=== PATIENT | male | born 1960 | race Caucasian/White ===

== ENCOUNTER 2017-07-09 17:59 | Emergency (ER) | payer MEDICAID ==
[~2017-07-09] VITALS: Ht 172.7 cm; Wt 56.7 kg
[~2017-07-09 17:59] MED LIST: 'XANAX0.25 MG PO; ACETAMINOPHEN-H1 TA2 PO; ANAPROX DS550 MG PO; ASPIR-LOW81 MG PO; BACTRIM DS 8001 TA1 PO; CLEOCIN HCL150 MG PO; COREG6.25 MG PO; COUMADIN10 M1 PO; COUMADIN7.5 M1 PO; FIORICET 325 MG1 TAB PO; FLEXERIL10 MG PO; FLONASE0.05 MG/AC NS; HYDROCODONE BIT1 T11 PO; LEVAQUIN750 MG PO; LISINOPRIL2.5 MG PO; MEDROL DOSEPAK4 MG PO; MOTRIN800 MG PO; NIZORAL 2%15 GM PO; NYSTATIN CREAM15 GM T; PRAVACHOL40 MG PO; PRAVASTATIN PO; PREDNICOT20 MG PO; PREDNISONE10 MG PO; PYRIDIUM200 M1 PO; SEPTRA DS 800 M1 TAB PO; SOTALOL HCL120 MG PO; VIBRAMYCIN100 MG PO; ZESTRIL5 MG PO
[2017-07-09 19:12] LABS: BASO # 0.1 10*3/uL (0.0-0.1); EOS # 0.1 10*3/uL (0.0-0.4); EOS % 1.3 % (1.0-4.0); HEMATOCRIT 39.7 % (42.0-52.0); HEMOGLOBIN 13.6 g/dl (14.0-18.0); LYMPH # 0.8 10*3/uL (1.3-4.4); LYMPH % 17.4 % (27.0-41.0); MEAN CELL VOLUME 92.3 fl (80.0-94.0); MEAN CORPUSCULAR HGB 31.6 pg (27.0-31.0); MEAN CORPUSCULAR HGB CONC 34.3 g/dl (33.0-37.0); MEAN PLATELET VOLUME 9.9 fl (9.6-12.3); MONO # 0.3 10*3/uL (0.1-1.0); MONO % 6.7 % (3.0-9.0); NEUT # 3.5 10*3/uL (2.3-7.9); NEUT % 73.2 % (47.0-73.0); PLATELET COUNT AUTOMATED 188 10*3/uL (130-400); WHITE BLOOD COUNT 4.8 10*3/uL (4.8-10.8)
[2017-07-09 19:19] LABS: INTERNATIONAL NORM RATIO 1.9 (2.0-3.5)
[2017-07-09 19:35] LABS: ALBUMIN 3.3 gm/dl (3.1-4.5); ALKALINE PHOSPHATASE 60 U/L (45-117); BUN 15 mg/dl (7-24); CHLORIDE 109 mmol/L (98-107); CREATININE 0.72 mg/dL (0.70-1.30); POTASSIUM 3.9 mmol/L (3.5-5.1); SGOT/AST 29 IU/L (3-35); SGPT/ALT 32 U/L (12-78); SODIUM 141 mmol/L (136-145)
[2017-07-09 19:36] LABS: TROPONIN I < 0.015 ng/ml (<0.045)
[2017-07-09] MEDS ORDERED: ZITHROMAX250 MG PO (21:50)
== END 2017-07-09 22:20 | disposition home or self-care (01) ==
LOC: ED 17:59
PROVIDERS: Physician Assistant
DX: H92.01 Otalgia, right ear (principal); R51 Headache; F17.200 Nicotine dependence, unspecified, uncomplicated; Z88.0 Allergy status to penicillin; Z91.040 Latex allergy status; Z79.82 Long term (current) use of aspirin; Z79.01 Long term (current) use of anticoagulants

== ENCOUNTER 2019-02-21 13:22 | Emergency (ER) | payer OTHER ==
[~2019-02-21] VITALS: Wt 54.4 kg
[~2019-02-21 13:22] MED LIST changes: +ZITHROMAX250 MG PO
[2019-02-21] MEDS ORDERED: LIDEX 0.05% CRE15 GM T (13:52)
== END 2019-02-21 14:00 | disposition home or self-care (01) ==
LOC: ED 13:22
DX: S40.262A Insect bite (nonvenomous) of left shoulder, initial encounter (principal); S30.860A Insect bite (nonvenomous) of lower back and pelvis, initial encounter; S70.362A Insect bite (nonvenomous), left thigh, initial encounter; S70.361A Insect bite (nonvenomous), right thigh, initial encounter; S30.861A Insect bite (nonvenomous) of abdominal wall, initial encounter; Z79.899 Other long term (current) drug therapy; Z79.01 Long term (current) use of anticoagulants; Z79.82 Long term (current) use of aspirin; Z88.0 Allergy status to penicillin; Z91.040 Latex allergy status; W57.XXXA Bitten or stung by nonvenomous insect and other nonvenomous arthropods, initial encounter; Y93.89 Activity, other specified; Y92.89 Other specified places as the place of occurrence of the external cause; Y99.8 Other external cause status

== ENCOUNTER 2019-07-11 19:57 | Emergency (ER) | payer OTHER ==
[~2019-07-11] VITALS: Ht 172.7 cm; Wt 49.9 kg
[~2019-07-11 19:57] MED LIST changes: +LIDEX 0.05% CRE15 GM T
[2019-07-11] MEDS ORDERED: KENALOG 0.025%15 GM T (20:27)
== END 2019-07-11 21:12 | disposition home or self-care (01) ==
LOC: ED 19:57
DX: S40.862A Insect bite (nonvenomous) of left upper arm, initial encounter (principal); S30.861A Insect bite (nonvenomous) of abdominal wall, initial encounter; Z88.0 Allergy status to penicillin; Z91.040 Latex allergy status; Z79.899 Other long term (current) drug therapy; Z79.82 Long term (current) use of aspirin; W57.XXXA Bitten or stung by nonvenomous insect and other nonvenomous arthropods, initial encounter; Y93.89 Activity, other specified; Y92.89 Other specified places as the place of occurrence of the external cause; Y99.8 Other external cause status

== ENCOUNTER 2019-08-19 18:34 | Emergency (ER) | payer OTHER ==
[~2019-08-19] VITALS: Ht 172.7 cm; Wt 49.9 kg
[~2019-08-19 18:34] MED LIST changes: +KENALOG 0.025%15 GM T
[2019-08-19] MEDS ORDERED: OFLOXACIN 5 ML5 ML OP (19:03)
== END 2019-08-19 19:04 | disposition home or self-care (01) ==
LOC: ED 18:34
DX: H60.93 Unspecified otitis externa, bilateral (principal); I25.2 Old myocardial infarction; J44.9 Chronic obstructive pulmonary disease, unspecified; I25.10 Atherosclerotic heart disease of native coronary artery without angina pectoris; E78.00 Pure hypercholesterolemia, unspecified; I48.91 Unspecified atrial fibrillation; F17.200 Nicotine dependence, unspecified, uncomplicated; Z88.0 Allergy status to penicillin; Z91.040 Latex allergy status; Z79.899 Other long term (current) drug therapy; Z79.2 Long term (current) use of antibiotics; Z79.82 Long term (current) use of aspirin

== ENCOUNTER → 2019-11-14 | Outpatient (CLI) | payer OTHER ==
[~2019-11-14] MED LIST changes: +OFLOXACIN 5 ML5 ML OP
== END | disposition home or self-care (01) ==
LOC: RAD 15:11
DX: M79.641 Pain in right hand (principal)

== ENCOUNTER 2021-03-20 05:19 | Emergency (ER) | payer OTHER ==
[~2021-03-20] VITALS: Wt 52.2 kg
[2021-03-20] MEDS ORDERED: XARE15TA PO (05:33)
[2021-03-20 06:51] LABS: BASO # 0.1 10*3/uL (0.0-0.1); BASO % 0.4 % (0.0-1.0); EOS # 0.1 10*3/uL (0.0-0.4); EOS % 0.8 % (1.0-4.0); HEMATOCRIT 40.9 % (42.0-52.0); LYMPH # 1.3 10*3/uL (1.3-4.4); LYMPH % 9.7 % (27.0-41.0); MEAN CELL VOLUME 92.3 fl (80.0-94.0); MEAN CORPUSCULAR HGB 31.4 pg (27.0-31.0); MEAN PLATELET VOLUME 9.9 fl (9.6-12.3); MONO # 0.6 10*3/uL (0.1-1.0); MONO % 4.8 % (3.0-9.0); NEUT # 11.1 10*3/uL (2.3-7.9); NEUT % 83.9 % (47.0-73.0); PLATELET COUNT AUTOMATED 225 10*3/uL (130-400); RED BLOOD COUNT 4.43 10*6/uL (4.50-5.90); RED CELL DISTRI WIDTH 12.4 % (0-14.5); WHITE BLOOD COUNT 13.3 10*3/uL (4.8-10.8)
[2021-03-20 07:08] LABS: ALBUMIN 3.5 gm/dl (3.1-4.5); ALKALINE PHOSPHATASE 69 U/L (45-117); BUN 14 mg/dl (7-24); CHLORIDE 111 mmol/L (98-107); CREATININE 0.79 mg/dL (0.70-1.30); LIPASE 93 U/L (73-393); POTASSIUM 3.5 mmol/L (3.5-5.1); SGOT/AST 18 IU/L (3-35); SGPT/ALT 20 U/L (12-78); SODIUM 141 mmol/L (136-145); TOTAL PROTEIN 7.3 gm/dL (6.4-8.2)
[2021-03-20 12:41] LABS: BILIRUBIN Negative (Negative); BLOOD 3+ (Negative); CLARITY Clear (Clear); COLOR Yellow (Yellow); GLUCOSE Negative (Negative); KETONE Negative (Negative); LEUKO ESTERASE Negative (Negative); NITRITE Negative (Negative); PH 6.5 (4.5-8.0); SPECIFIC GRAVITY >= 1.030 (1.001-1.030)
[2021-03-20 12:59] LABS: RBC TNTC rbc/hpf (0-2); WBC 0-2 wbc/hpf (0-5)
== END 2021-03-20 16:10 | disposition short-term general hospital (02) ==
LOC: ED 05:19
PROVIDERS: Emergency Medicine; Student in an Organized Health Care Education/Training Program
DX: N13.2 Hydronephrosis with renal and ureteral calculous obstruction (principal); R11.2 Nausea with vomiting, unspecified; I48.91 Unspecified atrial fibrillation; F41.9 Anxiety disorder, unspecified; I25.10 Atherosclerotic heart disease of native coronary artery without angina pectoris; E78.5 Hyperlipidemia, unspecified; F17.200 Nicotine dependence, unspecified, uncomplicated; Z88.0 Allergy status to penicillin; Z91.040 Latex allergy status; Z79.899 Other long term (current) drug therapy; Z79.01 Long term (current) use of anticoagulants; Z79.82 Long term (current) use of aspirin; Z90.89 Acquired absence of other organs; Z95.810 Presence of automatic (implantable) cardiac defibrillator

== ENCOUNTER → 2021-09-25 | Outpatient (CLI) | payer OTHER ==
[~2021-09-25] MED LIST changes: +XARE15TA PO
[2021-09-25 15:34] LABS: BASO # 0.1 10*3/uL (0.0-0.1); BASO % 0.9 % (0.0-1.0); EOS # 0.4 10*3/uL (0.0-0.4); EOS % 3.8 % (1.0-4.0); HEMATOCRIT 47.3 % (42.0-52.0); LYMPH % 21.9 % (27.0-41.0); MEAN CELL VOLUME 94.4 fl (80.0-94.0); MEAN CORPUSCULAR HGB 30.9 pg (27.0-31.0); MEAN CORPUSCULAR HGB CONC 32.8 g/dl (33.0-37.0); MEAN PLATELET VOLUME 9.8 fl (9.6-12.3); MONO # 0.6 10*3/uL (0.1-1.0); MONO % 6.9 % (3.0-9.0); NEUT # 6.2 10*3/uL (2.3-7.9); NEUT % 66.4 % (47.0-73.0); PLATELET COUNT AUTOMATED 291 10*3/uL (130-400); RED BLOOD COUNT 5.01 10*6/uL (4.50-5.90); RED CELL DISTRI WIDTH 12.7 % (0-14.5); WHITE BLOOD COUNT 9.3 10*3/uL (4.8-10.8)
[2021-09-25 15:49] LABS: ALBUMIN 3.5 gm/dl (3.1-4.5); ALKALINE PHOSPHATASE 81 U/L (45-117); BUN 19 mg/dl (7-24); CHLORIDE 110 mmol/L (98-107); LDH 195 U/L (87-241); POTASSIUM 4.5 mmol/L (3.5-5.1); SGOT/AST 18 IU/L (3-35); SGPT/ALT 29 U/L (12-78); SODIUM 141 mmol/L (136-145); TOTAL PROTEIN 8.1 gm/dL (6.4-8.2)
== END | disposition home or self-care (01) ==
LOC: LAB 15:08
PROVIDERS: ATTEND Internal Medicine Hematology & Oncology
DX: C64.1 Malignant neoplasm of right kidney, except renal pelvis (principal)

== ENCOUNTER → 2023-04-15 | Outpatient (CLI) | payer MEDICARE | END | disposition home or self-care (01) | LOC: LAB 15:55 | PROVIDERS: ATTEND Urology | DX: Z12.5 Encounter for screening for malignant neoplasm of prostate (principal) ==

== ENCOUNTER 2023-09-29 19:40 | Emergency (ER) | payer MEDICARE ==
[~2023-09-29] VITALS: Ht 167.6 cm; Wt 49.0 kg
[2023-09-29] MEDS ORDERED: LIPITOR40 MG PO (20:16)
[2023-09-29] MEDS ORDERED: PROTONIX TR40 M1 PO (20:17)
[2023-09-29] MEDS ORDERED: AMITRIPTYLINE25 MG PO (20:17)
== END 2023-09-29 21:29 | disposition home or self-care (01) ==
LOC: ED 19:40
DX: Z48.01 Encounter for change or removal of surgical wound dressing (principal); Z96.89 Presence of other specified functional implants; I25.2 Old myocardial infarction; J44.9 Chronic obstructive pulmonary disease, unspecified; I25.10 Atherosclerotic heart disease of native coronary artery without angina pectoris; E78.00 Pure hypercholesterolemia, unspecified; I48.91 Unspecified atrial fibrillation; Z88.0 Allergy status to penicillin; Z91.040 Latex allergy status; Z90.89 Acquired absence of other organs; Z98.890 Other specified postprocedural states

== ENCOUNTER → 2023-11-06 | Outpatient (CLI) | payer MEDICARE ==
[~2023-11-06] MED LIST changes: +AMITRIPTYLINE25 MG PO; +LIPITOR40 MG PO; +PROTONIX TR40 M1 PO
[2023-11-06 14:22] LABS: BASO # 0.1 10*3/uL (0.0-0.1); BASO % 0.5 % (0.0-1.0); EOS # 0.2 10*3/uL (0.0-0.4); EOS % 1.9 % (1.0-4.0); HEMATOCRIT 49.4 % (42.0-52.0); MEAN CELL VOLUME 95.9 fl (80.0-94.0); MEAN CORPUSCULAR HGB 31.3 pg (27.0-31.0); MEAN CORPUSCULAR HGB CONC 32.6 g/dl (33.0-37.0); MEAN PLATELET VOLUME 9.3 fl (9.6-12.3); MONO % 7.9 % (3.0-9.0); NEUT # 9.2 10*3/uL (2.3-7.9); NEUT % 73.3 % (47.0-73.0); PLATELET COUNT AUTOMATED 244 10*3/uL (130-400); RED BLOOD COUNT 5.15 10*6/uL (4.50-5.90); RED CELL DISTRI WIDTH 12.5 % (0-14.5); WHITE BLOOD COUNT 12.6 10*3/uL (4.8-10.8)
[2023-11-06 14:48] LABS: ALKALINE PHOSPHATASE 82 U/L (46-116); BUN 12 mg/dl (9-23); CHLORIDE 106 mmol/L (98-107); FREE T4 1.29 ng/dl (0.89-1.76); POTASSIUM 4.3 mmol/L (3.4-5.1); SGPT/ALT 13 U/L (5-49); TOTAL PROTEIN 8.4 gm/dL (6.0-8.0)
== END | disposition home or self-care (01) ==
LOC: LAB 14:06
PROVIDERS: ATTEND Internal Medicine Hematology & Oncology
DX: Z51.11 Encounter for antineoplastic chemotherapy (principal); Z51.12 Encounter for antineoplastic immunotherapy; I11.0 Hypertensive heart disease with heart failure; I50.22 Chronic systolic (congestive) heart failure; C65.1 Malignant neoplasm of right renal pelvis

== ENCOUNTER → 2023-11-27 | Outpatient (CLI) | payer MEDICARE ==
[2023-11-27 16:06] LABS: BASO # 0.1 10*3/uL (0.0-0.1); BASO % 0.5 % (0.0-1.0); EOS # 0.1 10*3/uL (0.0-0.4); EOS % 0.8 % (1.0-4.0); HEMATOCRIT 43.7 % (42.0-52.0); LYMPH # 1.8 10*3/uL (1.3-4.4); LYMPH % 11.7 % (27.0-41.0); MEAN CORPUSCULAR HGB 30.3 pg (27.0-31.0); MEAN CORPUSCULAR HGB CONC 31.6 g/dl (33.0-37.0); MEAN PLATELET VOLUME 9.6 fl (9.6-12.3); MONO # 1.4 10*3/uL (0.1-1.0); MONO % 9.2 % (3.0-9.0); NEUT # 11.9 10*3/uL (2.3-7.9); NEUT % 77.3 % (47.0-73.0); PLATELET COUNT AUTOMATED 358 10*3/uL (130-400); RED BLOOD COUNT 4.55 10*6/uL (4.50-5.90); RED CELL DISTRI WIDTH 12.4 % (0-14.5); WHITE BLOOD COUNT 15.4 10*3/uL (4.8-10.8)
[2023-11-27 16:31] LABS: ALKALINE PHOSPHATASE 79 U/L (46-116); BUN 14 mg/dl (9-23); CHLORIDE 103 mmol/L (98-107); FREE T4 1.25 ng/dl (0.89-1.76); SGPT/ALT 57 U/L (5-49); TOTAL PROTEIN 8.7 gm/dL (6.0-8.0)
== END | disposition home or self-care (01) ==
LOC: LAB 15:40
PROVIDERS: ATTEND Internal Medicine Hematology & Oncology
DX: Z51.11 Encounter for antineoplastic chemotherapy (principal); Z51.12 Encounter for antineoplastic immunotherapy; I11.0 Hypertensive heart disease with heart failure; I50.22 Chronic systolic (congestive) heart failure; C65.1 Malignant neoplasm of right renal pelvis

== ENCOUNTER → 2023-12-04 | Outpatient (CLI) | payer MEDICARE ==
[2023-12-04 14:59] LABS: HEMATOCRIT 38.3 % (42.0-52.0); MEAN CELL VOLUME 94.6 fl (80.0-94.0); MEAN CORPUSCULAR HGB 29.6 pg (27.0-31.0); MEAN CORPUSCULAR HGB CONC 31.3 g/dl (33.0-37.0); MEAN PLATELET VOLUME 9.3 fl (9.6-12.3); PLATELET COUNT AUTOMATED 497 10*3/uL (130-400); RED BLOOD COUNT 4.05 10*6/uL (4.50-5.90); RED CELL DISTRI WIDTH 12.5 % (0-14.5)
[2023-12-04 15:01] LABS: MANUAL DIFF REFLEX YES
[2023-12-04 15:24] LABS: ALKALINE PHOSPHATASE 130 U/L (46-116); BUN 16 mg/dl (9-23); CHLORIDE 100 mmol/L (98-107); POTASSIUM 4.4 mmol/L (3.4-5.1); SGPT/ALT 79 U/L (5-49); TOTAL PROTEIN 8.6 gm/dL (6.0-8.0)
[2023-12-04 15:25] LABS: PLATELET SUFFICIENCY HIGH (NORMAL); TOTAL CELLS COUNTED 100 #CELLS
[2023-12-04 15:26] LABS: ROULEAUX SLIGHT; SPHEROCYTES FEW
== END ==
LOC: LAB 14:43
PROVIDERS: ATTEND Internal Medicine Hematology & Oncology
DX: Z51.11 Encounter for antineoplastic chemotherapy (principal); Z51.12 Encounter for antineoplastic immunotherapy; C65.1 Malignant neoplasm of right renal pelvis; I11.0 Hypertensive heart disease with heart failure; I50.22 Chronic systolic (congestive) heart failure

== ENCOUNTER → 2023-12-11 | Outpatient (CLI) | payer MEDICARE ==
[2023-12-11 15:50] LABS: HEMATOCRIT 36.9 % (42.0-52.0); MEAN CELL VOLUME 94.4 fl (80.0-94.0); MEAN CORPUSCULAR HGB 29.9 pg (27.0-31.0); MEAN CORPUSCULAR HGB CONC 31.7 g/dl (33.0-37.0); MEAN PLATELET VOLUME 8.8 fl (9.6-12.3); PLATELET COUNT AUTOMATED 516 10*3/uL (130-400); RED BLOOD COUNT 3.91 10*6/uL (4.50-5.90); RED CELL DISTRI WIDTH 13.1 % (0-14.5); WHITE BLOOD COUNT 24.7 10*3/uL (4.8-10.8)
[2023-12-11 15:55] LABS: MANUAL DIFF REFLEX YES
[2023-12-11 16:15] LABS: ALKALINE PHOSPHATASE 105 U/L (46-116); BUN 21 mg/dl (9-23); CHLORIDE 96 mmol/L (98-107); PLATELET SUFFICIENCY HIGH (NORMAL); POTASSIUM 4.7 mmol/L (3.4-5.1); SGPT/ALT 77 U/L (5-49); TOTAL CELLS COUNTED 100 #CELLS; TOTAL PROTEIN 8.7 gm/dL (6.0-8.0)
== END | disposition home or self-care (01) ==
LOC: LAB 15:26
PROVIDERS: ATTEND Internal Medicine Hematology & Oncology
DX: Z51.11 Encounter for antineoplastic chemotherapy (principal); Z51.12 Encounter for antineoplastic immunotherapy; I11.0 Hypertensive heart disease with heart failure; I50.22 Chronic systolic (congestive) heart failure; C65.1 Malignant neoplasm of right renal pelvis

== ENCOUNTER → 2023-12-18 | Outpatient (CLI) | payer MEDICARE ==
[2023-12-18 16:21] LABS: BASO # 0.1 10*3/uL (0.0-0.1); BASO % 0.8 % (0.0-1.0); EOS # 0.2 10*3/uL (0.0-0.4); EOS % 1.4 % (1.0-4.0); HEMATOCRIT 35.7 % (42.0-52.0); LYMPH # 1.8 10*3/uL (1.3-4.4); LYMPH % 15.2 % (27.0-41.0); MEAN CELL VOLUME 94.4 fl (80.0-94.0); MEAN CORPUSCULAR HGB 29.4 pg (27.0-31.0); MEAN CORPUSCULAR HGB CONC 31.1 g/dl (33.0-37.0); MONO # 0.8 10*3/uL (0.1-1.0); MONO % 6.5 % (3.0-9.0); NEUT # 8.9 10*3/uL (2.3-7.9); NEUT % 75.4 % (47.0-73.0); PLATELET COUNT AUTOMATED 551 10*3/uL (130-400); RED BLOOD COUNT 3.78 10*6/uL (4.50-5.90); RED CELL DISTRI WIDTH 13.2 % (0-14.5); WHITE BLOOD COUNT 11.7 10*3/uL (4.8-10.8)
[2023-12-18 16:46] LABS: ALKALINE PHOSPHATASE 87 U/L (46-116); BUN 23 mg/dl (9-23); CHLORIDE 100 mmol/L (98-107); FREE T4 1.03 ng/dl (0.89-1.76); POTASSIUM 4.2 mmol/L (3.4-5.1); SGPT/ALT 28 U/L (5-49)
== END | disposition home or self-care (01) ==
LOC: LAB 16:01
PROVIDERS: ATTEND Internal Medicine Hematology & Oncology
DX: Z51.11 Encounter for antineoplastic chemotherapy (principal); Z51.12 Encounter for antineoplastic immunotherapy; C65.1 Malignant neoplasm of right renal pelvis; I11.0 Hypertensive heart disease with heart failure; I50.22 Chronic systolic (congestive) heart failure

== ENCOUNTER → 2023-12-25 | Outpatient (CLI) | payer MEDICARE ==
[2023-12-25 14:37] LABS: BASO # 0.1 10*3/uL (0.0-0.1); EOS # 0.2 10*3/uL (0.0-0.4); EOS % 2.4 % (1.0-4.0); HEMATOCRIT 39.7 % (42.0-52.0); LYMPH % 23.8 % (27.0-41.0); MEAN CELL VOLUME 94.3 fl (80.0-94.0); MEAN CORPUSCULAR HGB 29.5 pg (27.0-31.0); MEAN CORPUSCULAR HGB CONC 31.2 g/dl (33.0-37.0); MEAN PLATELET VOLUME 8.5 fl (9.6-12.3); MONO # 0.6 10*3/uL (0.1-1.0); MONO % 7.2 % (3.0-9.0); NEUT # 5.3 10*3/uL (2.3-7.9); PLATELET COUNT AUTOMATED 458 10*3/uL (130-400); RED BLOOD COUNT 4.21 10*6/uL (4.50-5.90); RED CELL DISTRI WIDTH 14.2 % (0-14.5); WHITE BLOOD COUNT 8.2 10*3/uL (4.8-10.8)
[2023-12-25 14:57] LABS: ALKALINE PHOSPHATASE 87 U/L (46-116); BUN 17 mg/dl (9-23); CHLORIDE 105 mmol/L (98-107); FREE T4 1.01 ng/dl (0.89-1.76); POTASSIUM 4.5 mmol/L (3.4-5.1); SGPT/ALT 16 U/L (5-49); TOTAL PROTEIN 8.4 gm/dL (6.0-8.0)
== END | disposition home or self-care (01) ==
LOC: LAB 14:14
PROVIDERS: ATTEND Internal Medicine Hematology & Oncology
DX: Z51.11 Encounter for antineoplastic chemotherapy (principal); Z51.12 Encounter for antineoplastic immunotherapy; C65.1 Malignant neoplasm of right renal pelvis; I11.0 Hypertensive heart disease with heart failure; I50.22 Chronic systolic (congestive) heart failure

== ENCOUNTER → 2024-01-15 | Outpatient (CLI) | payer MEDICARE ==
[2024-01-15 14:28] LABS: BASO # 0.1 10*3/uL (0.0-0.1); BASO % 0.6 % (0.0-1.0); EOS # 0.2 10*3/uL (0.0-0.4); EOS % 1.3 % (1.0-4.0); HEMATOCRIT 38.2 % (42.0-52.0); LYMPH # 1.9 10*3/uL (1.3-4.4); LYMPH % 14.2 % (27.0-41.0); MEAN CELL VOLUME 92.9 fl (80.0-94.0); MEAN CORPUSCULAR HGB 29.2 pg (27.0-31.0); MEAN CORPUSCULAR HGB CONC 31.4 g/dl (33.0-37.0); MEAN PLATELET VOLUME 8.9 fl (9.6-12.3); MONO # 0.8 10*3/uL (0.1-1.0); MONO % 6.4 % (3.0-9.0); NEUT # 10.1 10*3/uL (2.3-7.9); NEUT % 77.1 % (47.0-73.0); PLATELET COUNT AUTOMATED 401 10*3/uL (130-400); RED BLOOD COUNT 4.11 10*6/uL (4.50-5.90); RED CELL DISTRI WIDTH 14.3 % (0-14.5)
[2024-01-15 16:44] LABS: ALKALINE PHOSPHATASE 77 U/L (46-116); BUN 21 mg/dl (9-23); CHLORIDE 102 mmol/L (98-107); FREE T4 0.99 ng/dl (0.89-1.76); POTASSIUM 4.4 mmol/L (3.4-5.1); SGPT/ALT 16 U/L (5-49); TOTAL PROTEIN 8.7 gm/dL (6.0-8.0)
== END | disposition home or self-care (01) ==
LOC: LAB 14:07
PROVIDERS: ATTEND Internal Medicine Hematology & Oncology
DX: Z51.11 Encounter for antineoplastic chemotherapy (principal); Z51.12 Encounter for antineoplastic immunotherapy; C65.1 Malignant neoplasm of right renal pelvis; I11.0 Hypertensive heart disease with heart failure; I50.22 Chronic systolic (congestive) heart failure

== ENCOUNTER 2024-01-31 13:59 | Emergency (ER) | payer MEDICARE ==
[2024-01-31] MEDS ORDERED: SODIUM CHLORIDE 0.9% 1,000 ML IV SCH (14:20)
[2024-01-31 14:33] LABS: MEAN CELL VOLUME 90.6 fl (80.0-94.0); MEAN CORPUSCULAR HGB 28.7 pg (27.0-31.0); MEAN CORPUSCULAR HGB CONC 31.7 g/dl (33.0-37.0); MEAN PLATELET VOLUME 9.1 fl (9.6-12.3); PLATELET COUNT AUTOMATED 390 10*3/uL (130-400); RED BLOOD COUNT 3.31 10*6/uL (4.50-5.90); RED CELL DISTRI WIDTH 14.6 % (0-14.5); WHITE BLOOD COUNT 24.8 10*3/uL (4.8-10.8)
[2024-01-31 14:35] LABS: MANUAL DIFF REFLEX YES
[2024-01-31 14:51] LABS: ACT PARTIAL THROMBO TIME 34.7 SECONDS (20.0-32.1)
[2024-01-31 14:54] LABS: ALKALINE PHOSPHATASE 193 U/L (46-116); BUN 24 mg/dl (9-23); CHLORIDE 101 mmol/L (98-107); LIPASE 39 U/L (12-53); POTASSIUM 4.2 mmol/L (3.4-5.1); SGPT/ALT 135 U/L (5-49); TOTAL PROTEIN 7.6 gm/dL (6.0-8.0)
[2024-01-31 15:00] LABS: BURR CELLS FEW; PLATELET SUFFICIENCY NORMAL (NORMAL); TOTAL CELLS COUNTED 100 #CELLS
[2024-01-31] MEDS ORDERED: Vancomycin Hydrochloride 250 ML IV ONE (15:00)
[2024-01-31] MEDS ORDERED: Cefepime Hydrochloride 2 GM in SODIUM CHLORIDE 0.9% 50 ML IV ONE (15:00)
[2024-01-31] MEDS ORDERED: AZITHROMYCIN 250 ML IV ONE (15:00)
[2024-01-31 15:01] LABS: TARGET CELLS FEW; TOXIC GRANULATION SLIGHT
[2024-01-31] MEDS ORDERED: NOREPINEPHRINE BITARTRATE/D5W 250 ML IV SCH (15:40)
[2024-01-31] MEDS ORDERED: IOHEXOL 300 MG/ML 100 ML VIAL IV ONE (17:20)
== END 2024-01-31 21:15 | disposition short-term general hospital (02) ==
LOC: ED 13:59
PROVIDERS: Internal Medicine
DX: R91.8 Other nonspecific abnormal finding of lung field (principal); J18.9 Pneumonia, unspecified organism; R65.21 Severe sepsis with septic shock; Z88.0 Allergy status to penicillin; Z91.040 Latex allergy status; Z90.89 Acquired absence of other organs; Z98.890 Other specified postprocedural states; I25.2 Old myocardial infarction; J44.9 Chronic obstructive pulmonary disease, unspecified; I25.10 Atherosclerotic heart disease of native coronary artery without angina pectoris; E78.00 Pure hypercholesterolemia, unspecified; I48.91 Unspecified atrial fibrillation

== ENCOUNTER → 2024-10-27 | Outpatient (CLI) | payer MEDICARE ==
[2024-10-27 16:17] LABS: BASO # 0.1 10*3/uL (0.0-0.1); BASO % 0.8 % (0.0-1.0); EOS # 0.3 10*3/uL (0.0-0.4); EOS % 3.3 % (1.0-4.0); HEMATOCRIT 42.8 % (42.0-52.0); MEAN CELL VOLUME 92.8 fl (80.0-94.0); MEAN CORPUSCULAR HGB 30.8 pg (27.0-31.0); MEAN CORPUSCULAR HGB CONC 33.2 g/dl (33.0-37.0); MEAN PLATELET VOLUME 9.3 fl (9.6-12.3); MONO # 0.8 10*3/uL (0.1-1.0); MONO % 7.7 % (3.0-9.0); NEUT # 6.7 10*3/uL (2.3-7.9); NEUT % 66.6 % (47.0-73.0); PLATELET COUNT AUTOMATED 253 10*3/uL (130-400); RED BLOOD COUNT 4.61 10*6/uL (4.50-5.90); RED CELL DISTRI WIDTH 12.6 % (0-14.5)
[2024-10-27 16:46] LABS: ALKALINE PHOSPHATASE 92 U/L (46-116); BUN 10 mg/dl (9-23); CHLORIDE 104 mmol/L (98-107); FREE T4 1.12 ng/dl (0.89-1.76); POTASSIUM 4.3 mmol/L (3.4-5.1); SGPT/ALT 11 U/L (5-49); TOTAL PROTEIN 7.8 gm/dL (6.0-8.0)
== END | disposition home or self-care (01) ==
LOC: LAB 15:52
PROVIDERS: ATTEND Internal Medicine Hematology & Oncology
DX: C65.1 Malignant neoplasm of right renal pelvis (principal); I11.0 Hypertensive heart disease with heart failure; I50.22 Chronic systolic (congestive) heart failure; Z51.12 Encounter for antineoplastic immunotherapy; Z51.11 Encounter for antineoplastic chemotherapy

== ENCOUNTER 2025-04-06 16:08 | Emergency (ER) | payer MEDICARE ==
[~2025-04-06] VITALS: Ht 172.7 cm; Wt 48.5 kg
[2025-04-06] MEDS ORDERED: SODIUM CHLORIDE 0.9% 500 ML IV ONE (16:50)
[2025-04-06] MEDS ORDERED: Ondansetron Hydrochloride 4 MG/2 ML VIAL IV ONE (16:50)
[2025-04-06 17:06] LABS: BASO # 0.1 10*3/uL (0.0-0.1); BASO % 0.4 % (0.0-1.0); EOS # 0.3 10*3/uL (0.0-0.4); EOS % 2.4 % (1.0-4.0); MEAN CELL VOLUME 85.1 fl (80.0-94.0); MEAN CORPUSCULAR HGB 26.3 pg (27.0-31.0); MEAN PLATELET VOLUME 9.2 fl (9.6-12.3); MONO # 1.1 10*3/uL (0.1-1.0); MONO % 8.3 % (3.0-9.0); NEUT # 9.9 10*3/uL (2.3-7.9); NEUT % 77.4 % (47.0-73.0); NUCLEATED RED BLOOD CELL 0.0 % (0.0-0.0); NUCLEATED RED BLOOD CELL 0.0 10*3/uL (0.0-0.0); PLATELET COUNT AUTOMATED 293 10*3/uL (130-400); RED CELL DISTRI WIDTH 12.8 % (0-14.5)
[2025-04-06 17:23] LABS: BUN 21 mg/dl (9-23)
[2025-04-06] MEDS ORDERED: MIRALAX POWDER17 G1 PO (19:07)
[2025-04-06] MEDS ORDERED: COLACE100 MG PO (19:07)
== END 2025-04-06 19:45 | disposition home or self-care (01) ==
LOC: ED 16:08
PROVIDERS: Emergency Medicine
DX: K59.00 Constipation, unspecified (principal); C79.9 Secondary malignant neoplasm of unspecified site; E78.00 Pure hypercholesterolemia, unspecified; J44.9 Chronic obstructive pulmonary disease, unspecified; I25.10 Atherosclerotic heart disease of native coronary artery without angina pectoris; Z79.899 Other long term (current) drug therapy; Z85.528 Personal history of other malignant neoplasm of kidney; Z85.89 Personal history of malignant neoplasm of other organs and systems; Z88.0 Allergy status to penicillin; Z91.040 Latex allergy status; Z90.89 Acquired absence of other organs; Z98.890 Other specified postprocedural states

== ENCOUNTER → 2025-05-08 | Outpatient (CLI) | payer MEDICARE ==
[~2025-05-08] MED LIST changes: +COLACE100 MG PO; +MIRALAX POWDER17 G1 PO
[2025-05-08 17:56] LABS: MEAN CELL VOLUME 83.4 fl (80.0-94.0); MEAN CORPUSCULAR HGB 25.6 pg (27.0-31.0); MEAN PLATELET VOLUME 8.8 fl (9.6-12.3); NUCLEATED RED BLOOD CELL 0.0 % (0.0-0.0); NUCLEATED RED BLOOD CELL 0.0 10*3/uL (0.0-0.0); PLATELET COUNT AUTOMATED 385 10*3/uL (130-400); RED CELL DISTRI WIDTH 14.6 % (0-14.5)
[2025-05-08 17:58] LABS: MANUAL DIFF REFLEX YES
[2025-05-08 18:21] LABS: BUN 20 mg/dl (9-23); LDH 283 U/L (120-246); SGPT/ALT 12 U/L (5-49)
[2025-05-08 19:11] LABS: PLATELET SUFFICIENCY NORMAL (NORMAL)
== END | disposition home or self-care (01) ==
LOC: LAB 17:35
PROVIDERS: ATTEND Internal Medicine Hematology & Oncology
DX: C67.9 Malignant neoplasm of bladder, unspecified (principal); C65.1 Malignant neoplasm of right renal pelvis; D63.0 Anemia in neoplastic disease; Z09 Encounter for follow-up examination after completed treatment for conditions other than malignant neoplasm

== ENCOUNTER → 2025-05-23 | Outpatient (CLI) | payer MEDICARE ==
[2025-05-23 17:39] LABS: BASO # 0.0 10*3/uL (0.0-0.1); BASO % 0.2 % (0.0-1.0); EOS # 0.1 10*3/uL (0.0-0.4); EOS % 1.2 % (1.0-4.0); MEAN CELL VOLUME 82.8 fl (80.0-94.0); MEAN CORPUSCULAR HGB 25.1 pg (27.0-31.0); MEAN PLATELET VOLUME 9.1 fl (9.6-12.3); MONO # 0.1 10*3/uL (0.1-1.0); MONO % 1.6 % (3.0-9.0); NEUT # 7.3 10*3/uL (2.3-7.9); NEUT % 82.4 % (47.0-73.0); NUCLEATED RED BLOOD CELL 0.0 % (0.0-0.0); NUCLEATED RED BLOOD CELL 0.0 10*3/uL (0.0-0.0); PLATELET COUNT AUTOMATED 250 10*3/uL (130-400); RED CELL DISTRI WIDTH 15.6 % (0-14.5)
[2025-05-23 18:09] LABS: BUN 25 mg/dl (9-23); SGPT/ALT 101 U/L (5-49)
== END ==
LOC: LAB 16:58
PROVIDERS: ATTEND Internal Medicine Hematology & Oncology
DX: C79.71 Secondary malignant neoplasm of right adrenal gland (principal); C79.72 Secondary malignant neoplasm of left adrenal gland; C65.1 Malignant neoplasm of right renal pelvis